=== PATIENT | female | born 1970 | race Caucasian/White ===

== ENCOUNTER 2024-04-24 18:55 | Emergency (ER) | payer OTHER, SELFPAY ==
--- NOTE | 2024-04-24 18:56 | ED.EAR ---
HPI - Ear Problem General Chief complaint: Ear Stated complaint: FB L EAR Time Seen by Provider: 04/24/24 19:04 Source: patient, RN notes reviewed and old records reviewed Mode of arrival: ambulatory Limitations: no limitations History of Present Illness HPI Narrative: 53-year-old female presents to [facility] with complaints of sand in her ear for 2 weeks. Related Data Home Medications Medication Instructions Recorded Confirmed cholecalciferol (vitamin D3) 50 50 mcg PO DAILY 02/24/21 04/24/24 mcg (2,000 unit) tablet mvi, adult no.1 with vit K 3,300 1 vial IV DAILY 02/24/21 04/24/24 unit-150 mcg/10 mL intravenous soln (M.V.I. Adult) etodolac 400 mg tablet 400 mg PO BID PRN arthritis pain 04/24/24 04/24/24 thyroid (pork) 15 mg tablet 15 mg PO DAILY 04/24/24 04/24/24 ([place] Thyroid) thyroid (pork) 60 mg tablet 60 mg PO DAILY 04/24/24 04/24/24 ([place] Thyroid) Allergies Allergy/AdvReac Type Severity Reaction Status Date / Time Latex, Natural Rubber Allergy Intermediate sensitivity Verified 04/24/24 19:13 Review of Systems Review of Systems: All systems reviewed & are unremarkable except as noted in HPI and below Constitutional: Constitutional: Reports no additional constitutional complaints Eyes: Eyes: Reports no additional eye complaints ENT: Reports as per HPI Cardiovascular: Cardiovascular: Reports no additional cardiovascular complaints, Denies chest pain and Denies dyspnea Respiratory: Respiratory: Reports no additional respiratory complaints, Denies chest congestion, Denies cough and Denies dyspnea Gastrointestinal: Gastrointestinal: Reports no additional gastrointestinal complaints, Denies abdominal pain, Denies nausea and Denies vomiting Musculoskeletal: Musculoskeletal: Reports no additional musculoskeletal complaints Integumentary/Breasts: Skin/Breast: Reports system reviewed and no additional complaints, except as docu Neurologic: Reports system reviewed and no additional complaints, except as documented Psychiatric: Psychiatric: Reports no additional psychiatric complaints Allergic/Immunologic: Allergic/Immunologic: Reports no additional allergic/immunologic complaints PMFSH Past Medical History Medical History Arthritis Asthma IBS (irritable bowel syndrome) Thyroid disorder Family History Family History Sibling Thyroid disorder Social History Social History Smoking status: Former smoker Alcohol intake: current Alcohol use details: occasionally has a glass of wine Substance use: never Living arrangements: with family Occupation/Education: occupation Additional occupation/education comments: RN Gender identity (if verbalized by the patient): Female Sexual Orientation (if Verbalized by the Patient): Straight or Heterosexual Comments At the time of my signature, I reviewed and agree with the nursing past medical, surgical, social, and family history. There is no relevant family history pertinent to the patient complaint. Exam Const: General: cooperative, healthy appearing, comfortable, no acute distress, well developed, alert and well nourished Nutritional Appearance: well nourished Orientation/consciousness: patient oriented x3 Limitations: no limitations HENMT: Head: normal to inspection Ears: hearing grossly normal bilaterally, external ears normal, TM's normal bilaterally and Abnormal EAC present foreign body on the left (white sand) Face/Nose/Sinus: Normal external nose present, Normal nares present, Normal nasal mucous membranes and turbinates present, normal facial exam and face symmetric Face and sinus: normal facial exam and face symmetric Eyes: General: appearance normal, both eyes and all related structures Alignment and Position: alignment normal Periorbital: periorbital
[2024-04-24 19:10] VITALS: BP 132/87; PULSE 77; RESP 16; TEMP 36.8; O2SAT 100
== END 2024-04-24 19:28 | disposition home or self-care (01) ==
PROVIDERS: Emergency Provider Nurse Practitioner
DX: T16.2XXA Foreign body in left ear, initial encounter (principal); W44.8XXA Other foreign body entering into or through a natural orifice, initial encounter; Z87.891 Personal history of nicotine dependence; M19.90 Unspecified osteoarthritis, unspecified site; J45.909 Unspecified asthma, uncomplicated; E07.9 Disorder of thyroid, unspecified
CPT/HCPCS: 99213; A9270; G0463

== ENCOUNTER 2024-09-07 10:51 | Emergency (ER) | payer OTHER, SELFPAY ==
--- NOTE | ~2024-09-07 | XR_ITS ---
EXAMINATION: XR ankle LT min 3V DATE: 09/07/2024 11:18 INDICATION: Left ankle injury and pain. TECHNIQUE: 4 views of left ankle were obtained. COMPARISON: None. FINDINGS: Bone alignment is normal. No fracture. Joint spaces are normal. There is ankle soft tissue swelling. IMPRESSION: 1. No fracture. Reviewed, dictated and finalized at location A. IMPRESSION: 1. No fracture.
--- NOTE | 2024-09-07 11:01 | ED_ITS ---
HPI - Extremity Injury (Lower) General Stated Complaint: Lt ankle Injury Source: patient Mode of arrival: ambulatory Limitations: no limitations History of Present Illness HPI Narrative: 54 y/o female presented for complaint of left lateral ankle pain and swelling after injury yesterday. She states she was walking quickly down the stairs, not paying attention while she was looking on her phone, and found her left foot twisted in the banister the stair. Denies numbness, tingling, weakness or deformity. She has been doing rice therapy. Related Data Home Medications Medication Instructions Recorded Confirmed cholecalciferol (vitamin D3) 50 50 mcg PO DAILY 02/24/21 09/07/24 mcg (2,000 unit) tablet mvi, adult no.1 with vit K 3,300 1 vial IV DAILY 02/24/21 09/07/24 unit-150 mcg/10 mL intravenous soln (M.V.I. Adult) etodolac 400 mg tablet 400 mg PO BID PRN arthritis pain 04/24/24 09/07/24 thyroid (pork) 15 mg tablet 15 mg PO DAILY 04/24/24 09/07/24 ([place] Thyroid) thyroid (pork) 60 mg tablet 60 mg PO DAILY 04/24/24 09/07/24 ([place] Thyroid) Allergies Allergy/AdvReac Type Severity Reaction Status Date / Time Latex, Natural Rubber Allergy Intermediate sensitivity Verified 09/07/24 11:14 Review of Systems Review of Systems: CONSTITUTIONAL: Denies body aches, fever, chills CARDIOVASCULAR: Denies chest pain, palpitations, or edema. RESPIRATORY: Denies cough or dyspnea. SKIN: Denies rash, itching, or wounds. MUSCULOSKELETAL: Reports left ankle pain, swelling NEUROLOGIC: Denies headache, numbness, tingling, or weakness. All systems reviewed & are unremarkable except as noted in HPI and below PMFSH Past Medical History Medical History Arthritis Asthma IBS (irritable bowel syndrome) Thyroid disorder Family History Family History Sibling Thyroid disorder Social History Social History Smoking status: Former smoker Alcohol intake: current Alcohol use details: occasionally has a glass of wine Substance use: never Living arrangements: with family Occupation/Education: occupation Additional occupation/education comments: RN Gender identity (if verbalized by the patient): Female Sexual Orientation (if Verbalized by the Patient): Straight or Heterosexual Comments At time of signature, I have reviewed and agree with nursing past medical, surgical, social and family history unless otherwise noted. Please see nursing chart for further information. There is no relevant family history pertinent to the presenting complaint Exam Narrative: GENERAL: Well-appearing CHEST: Speaks in full sentences. No respiratory distress. HEART: Regular rate and rhythm. Normal and equal peripheral pulses. EXTREMITIES: Left foot has normal strength and sensation, normal range of motion with rotation of left ankle, mild pain reported with flexion/extension. Swelling noted to lateral malleolus, mild ecchymosis, point tenderness. No open wounds, or obvious deformity; alignment normal, pulse palpable and equal bilaterally, skin warm, dry, pink. Capillary refill less than 3 seconds. SKIN: Warm, dry, NEURO: Alert and oriented x3. PSYCH: Normal mood and affect Course Course Emergency Course: Patient is aware of diagnosis, understands and agrees to treatment plan. Anticipatory guidance given. Patient agrees to follow-up as directed and is aware of reasons to seek care at the emergency department. Portions of this record may have been created with voice recognition software Level of Care: Express Care Visit Vital Signs Vital signs: Reviewed MDM - Extremity Injury (Lower) MDM Narrative Medical decision making narrative: Discussed physical exam findings and Xray. Pt has yevgeniy wraps at home and declined one today. Advised supportive measures and signs/symptoms to go to the ER. Pt is appropriate for outpt treatment and f/u. Differential Diagnosis Differential diagnosis: Likely ankle sprain and strain and ankle fracture Imaging Data Radiologist's impression: Patient: Jackie Vasquez : 1970 MR#: [id number] Age: 54 Acct:[id number] Loc: [id number] ADM Date: 09/07/24Attending Dr: Ordering Physician: Brandie Segovia APRN Date of Service: 09/07/24 Procedure(s): XR ankle LT min 3V Accession Number(s): [id number] cc: Brandie Segovia APRN; UNKNOWN,DOCTOR~ EXAMINATION: XR ankle LT min 3V DATE: 09/07/2024 11:18 INDICATION: Left ankle injury and pain. TECHNIQUE: 4 views of left ankle were obtained. COMPARISON: None. FINDINGS: Bone alignment is normal. No fracture. Joint spaces are normal. There is ankle soft tissue swelling. IMPRESSION: 1. No fracture. Discharge Plan Discharge Clinical Impression: Ankle sprain Patient Disposition: Home, Self-Care Condition: Stable Instructions: Ankle Sprain (ED) Additional Instructions: Rest and elevate the left leg; bear weight as tolerated Apply ice 15-20 minute intervals several times a day Keep it wrapped with YEVGENIY or use a soft ankle splint Motrin 600mg every 8 hours, alternate with Tylenol 1000mg every 8 hours as needed Follow up with your primary care provider as needed in 1 week Go to the ER for worsening symptoms or concerns Prescriptions: No Action thyroid (pork) [[place] Thyroid] 15 mg tablet 15 mg PO DAILY thyroid (pork) [[place] Thyroid] 60 mg tablet 60 mg PO DAILY etodolac 400 mg tablet 400 mg PO BID PRN (Reason: arthritis pain) ciprofloxacin-dexamethasone 0.3-0.1 % drops,suspension 5 drp EACH EAR Q12H 7 Days Qty: 7.5 0RF cholecalciferol (vitamin D3) 50 mcg (2,000 unit) tablet 50 mcg PO DAILY M.V.I. Adult 3,300 unit- 150 mcg/10 mL solution 1 vial IV DAILY temazepam 30 mg capsule 30 mg PO QHS PRN (Reason: sleep) Qty: 30 5RF Follow-up/Referrals: UNKNOWN,DOCTOR [Primary Care Provider] -
[2024-09-07 11:02] VITALS: BP 129/89; PULSE 75; RESP 18; TEMP 36.9; O2SAT 100
== END 2024-09-07 11:37 | disposition home or self-care (01) ==
PROVIDERS: Emergency Provider Nurse Practitioner Family
DX: S93.402A Sprain of unspecified ligament of left ankle, initial encounter (principal); X50.9XXA Other and unspecified overexertion or strenuous movements or postures, initial encounter; M19.90 Unspecified osteoarthritis, unspecified site; J45.909 Unspecified asthma, uncomplicated; Z87.891 Personal history of nicotine dependence
CPT/HCPCS: 73610; 99213; G0463